=== PATIENT | female | born 1965 | race Caucasian/White ===

== ENCOUNTER → 2017-10-24 | Outpatient (CLI) | payer OTHER ==
[~2017-10-24] MED LIST: BCP
--- NOTE | 2017-10-25 11:06 | RADIOLOGY IMAGING REPORT ---
FACILITY: [facility] PATIENT NAME: PATRICE ROLLINS : [id number] MR: [id number] V: [id number] EXAM DATE: ORDERING PHYSICIAN: VERO BABCOCK TECHNOLOGIST: Agnieszka Haque PROCEDURE:BILATERAL DIGITAL SCREENING MAMMOGRAM WITH CAD ASSISTED INTERPRETATION & 3D TOMOSYNTHESIS COMPARISON:Prior mammograms 10/23/15 & 02/13/14 INDICATIONS:SCREENING FINDINGS: Breast tissue is heterogeneously dense. There is no dominant mass, suspicious cluster of microcalcifications or persistent areas of architectural distortion. DIAGNOSTIC CATEGORY 1--NEGATIVE. RECOMMENDATIONS: ROUTINE MAMMOGRAM AND CLINICAL EVALUATION. IMPRESSION: BIRADS 1: Negative Recommend the patient resumes screening mammography in 1 year. Dictated by: Gurinder Pulido M.D. on 10/25/2017 at 8:34 Transcribed by: CHACHO on 10/25/2017 at 10:32 Approved by: Gurinder Pulido M.D. on 10/25/2017 at 11:05 [facility]
== END ==
LOC: MAMO 00:37
PROVIDERS: ATTEND Nurse Practitioner Family
DX: Z12.31 Encounter for screening mammogram for malignant neoplasm of breast (principal)
CPT/HCPCS: 77063; 77067